=== PATIENT | male | born 1975 | race Caucasian/White ===

== ENCOUNTER → 2016-05-14 | Day surgery (SDC) | payer MEDICARE, MEDICAID ==
[~2016-05-14] VITALS: Ht 175.3 cm; Wt 86.3 kg
[~2016-05-14] MED LIST: TYLENOL325 MG PO
--- NOTE | ~2016-05-14 | OR ---
PATIENT'S NAME: LOULOU BIRCH [facility] AGE: 40 Y [address] ROOM: [place] [id number] LOCATION: [facility] [place] ADMIT DATE: 05/14/2016 OR/Procedure Report DISCHARGE DATE: FAMILY PHYSICIAN: PHYSICIAN, NO ATTENDING PHYSICIAN: Dayana Martin SURGEON: Dayana Martin DDS TUYERE FITTER: Kimberlee CARRENO. DATE OF PROCEDURE: 05/14/2016 Corrected procedure per physician 05/19/16 AO PREOPERATIVE DIAGNOSIS: Oral exam, radiographs prophet with full mouth debridement. POSTOPERATIVE DIAGNOSIS: Oral exam, radiographs prophey with full mouth debridement completed. PROCEDURE PERFORMED: Oral exam, radiographs, prophey with full mouth debridement. INDICATIONS: The patient arrived at outpatient in good health and n.p.o. The patient needs annual exam and cleaning. He is mentally challenged and cannot cooperate for any treatment in the office. There was a presurgical consult with his parents and all questions were answered. PROCEDURE IN DETAIL: The patient was taken to the OR. In the supine position, the patient was prepped and draped in the usual manner. The patient was nasally intubated and administered general anesthesia. An IV was placed prior to the intubation. A throat pack was placed to occlude the pharynx. Four bitewing, and 1 maxillary occlusal, radiographs, and an oral exam, adult prophy, and full mouth debridement using the Cavitron was completed. A mouth prop was utilized. There was no decay present. The mouth was then rinsed and the throat pack was removed. A 3M NICK Vanish 5% sodium fluoride varnish was applied to all dentition. Blood loss was minimal. The patient was taken to recovery in good and stable condition. There was a postsurgical consultation with his parents and all questions were answered. DAYANA MARTIN DDS TLP/modl /[id number] PATIENT'S NAME: LOULOU BIRCH [facility] AGE: 40 Y [address] ROOM: [place], [place] [address] LOCATION: [facility] [place] ADMIT DATE: 05/14/2016 OR/Procedure Report DISCHARGE DATE: FAMILY PHYSICIAN: YENI INGRAM ATTENDING PHYSICIAN: Dayana Martin Corrected procedure per physician 05/19/16 AO d: 05/14/16 1310 t: 05/31/16 1011, OPERATIVE SUMMARY
== END ==
LOC: GPOC 05-07 13:00 → GSDC 07:00
PROC: 0HD1XZZ Extraction of Face Skin, External Approach (ICD-10-PCS; principal; 2016-05-14)
DX: K08.89 Other specified disorders of teeth and supporting structures (principal); F84.0 Autistic disorder; F32.9 Major depressive disorder, single episode, unspecified; E66.9 Obesity, unspecified; Z68.30 Body mass index [BMI] 30.0-30.9, adult
CPT/HCPCS: J2001; J7030